=== PATIENT | female | born 1960 | race Caucasian/White ===

== ENCOUNTER 2017-01-22 09:19 | Observation (INO) ==
[2017-01-22] MEDS ORDERED: Nitroglycerin 0.4 MG TAB.SUBL SL PRN (10:53)
--- NOTE | 2017-01-22 11:21 | Internal Med History&Physical ---
Date of Encounter: 01/22/17 Time of Encounter: 10:45 Assessment and Plan (1) Left bundle branch block (LBBB) Current visit: Yes Status: Acute (2) HTN (hypertension), benign Current visit: Yes Status: Acute Add 1 dose of Lopressor IV and then add Lopressor twice a day oral (3) Dyslipidemia Current visit: Yes Status: Acute Check fasting lipid profile (4) New-onset angina Current visit: No Status: Acute Patient had clinical chest pain. With her the progressive dyspnea on exertion lately relieved with rest was a new finding of left bundle branch block. May consider invasive workup included cardiac gas is Elda with her significant family history of premature coronary artery disease, check fasting lipid profile add Nitropaste, close monitoring may consider nitro drip. Aspirin once daily, discussed with cardiology team was going to come and evaluate the patient for now keep patient nothing by mouth for possible cardiac catheter until evaluation by cardiology (5) Calf tenderness Current visit: Yes Status: Acute With her chronic bilateral Pain we will check d-dimer. If it is elevated we will proceed with venous Doppler lower extremities as well as CTA chest if negative low-risk Internal Medicine - H&P: HPI Chief complaint: Left side chest pain Admitted From: Hospital to Hospital Transfer Plans for Post Hospital Care: Home History of present illness: Ms. Villa is a 56 year old female with significant family history of coronary artery disease, patient went to [place] emergency room today with complain of recurrent episodes of chest pain. Patient stated over the last 1-1/2 months she has progressive dyspnea on exertion relieved with rest. Last night patient had episode of left sided chest pain burning like sensation 7 out of 10 in severity radiating to her left side of neck and left upper extremity with tingling numbness sensation of in her left sided neck and left upper extremities , Her pain started around 8:30 last night, patient stated that she Took aspirin which helped to improve her pain. Patient was able to sleep, patient wake up this morning around 5:30 AM with severe left-sided chest pain radiating again to her left sided neck and left upper extremities. Family check blood pressure was elevated systolic blood pressure was 150. Patient brought to the emergency room patient was given multiple doses of nitroglycerin total 3 doses. Patient stated she had some slight relief with nitroglycerin temporary. Patient had nitro paste placed. Patient stated she continued to have burning-like sensation but is much better compared to before. Patient denies any syncope or presyncope Past Med Surg Social Fam HX - Past Medical History Medical history: hyperlipidemia Psychiatric history: no psych history - Past Surgical History Surgical History: other (Appellation of her uterus, colonoscopy) - Social History Smoking Status: Never smoker Smokeless Tobacco Status: No Alcohol use: none Drug use: none - Family History Father Name: CAD S/P [place]ag @ 50YO Mother Hx Family Cardiac Disorders: Yes (CAD ) Internal Medicine - H&P: Meds Amitriptyline [Elavil] 25 mg PO HS 01/22/17 [History] Ergocalciferol (VITAMIN D2) [Vitamin D2] 50,000 unit PO QWEEK 01/22/17 [History] Sertraline [Zoloft] 100 mg PO DAILY 01/22/17 [History] 3 Allergy/AdvReac Type Severity Reaction Status Date / Time No Known Allergies Allergy Verified 01/22/17 07:06 All Systems PM: A 10-system review of systems was performed and is negative for pertinent findings except as documented above in the HPI. - Constitutional General appearance: Present: A&O X 3 - Head Head exam: Present: atraumatic, normocephalic - Neck Neck exam general surgery: Present: supple, trachea midline. Absent: lymphadenopathy - Respiratory Respiratory exam: Present: CTAB. Absent: accessory muscle use, rales, rhonchi, wheezes - Cardiovascular Cardiovascular exam: Present: RRR, +S1, +S2. Absent: diastolic murmur, gallop, rubs, systolic murmur - GI/Abdominal GI/Abdominal exam: Present: normal bowel sounds, soft, no peritoneal signs. Absent: distended, tenderness - Extremities Exam Extremities exam: Present: warm, radial pulses palpable and symmetrical. Absent : cyanotic, pedal edema Internal Med - H&P Results - Impressions Electrolytes within normal limit, H&H stable, PT/INR normal, EKG consistent with left bundle branch block
[2017-01-22] MEDS ORDERED: *HR* Metoprolol 5 MG/5 ML VIAL IVP ONE (11:44)
--- NOTE | 2017-01-22 13:02 | Cardiology Consult Note ---
Date of Encounter: 01/22/17 Time of Encounter: 12:51 Assessment and Plan (1) Chest pain Current Visit: Yes Status: Acute Atypical chest pain. Pain is reproducibe. Troponin negative x2. EKG shows LBBB and accelerated junctional rhythm. No previous EKG to compare. Cardiac risk factors include family history (father underwent CABG at age 51). Appears to have hypertension also. Continue to trend troponin. Check TTE. Plan for stress test vs [facility] tomorrow pending TTE. Qualifiers: Chest pain type: unspecified Qualified Code(s): R07.9 - Chest pain, unspecified (2) Left bundle branch block (LBBB) Current Visit: Yes Status: Acute EKG with LBBB. No previous EKG to compare. See plan above. Check TTE. (3) HTN (hypertension), benign Current Visit: Yes Status: Acute Add lisinopril. Discussion w patient/family: The assessment and plan as outlined above was discussed with the patient and/or family members who expressed understanding and agreement. All questions were answered. Thank you for involving us in the care of your patient. Please call with any questions. History of Present Illness Consult date: 01/22/17 Requesting physician: Rabia Byers Consult reason: Abnormal EKG, chest pain Chief complaint: Chest pain History of present illness: Ms. Villa is a 56 year old female with a history of anxiety who presents with chest pain starting last night while laying in bed. Her pain is described as a left sided chest burning associated with tingling in her left neck and arm. She took two 81 mg aspirin and went to sleep. When she woke up she continued to experience chest pain. She took two more aspirin and went to the ED in [place] and was given three more aspirin tablets and NTG paste. She reports minimal improvement in her pain. Her troponin was negative. EKG showed new LBBB. She was transferred to [facility]. Cardiology consulted for abnormal EKG. On my exam she continues to have left sided chest discomfort described as a burning and is reproducible. She denies SOB, palpitations, or dizziness. Denies nausea, vomiting, or diaphoresis. Past Med Surg Social Fam HX - Past Medical History Psychiatric history: no psych history, anxiety - Past Surgical History Surgical History: other (Appellation of her uterus, colonoscopy) - Social History Smoking Status: Never smoker Smokeless Tobacco Status: No Alcohol use: none Drug use: none - Family History Mother Hx Family Cardiac Disorders: Yes (heart surgery) Father Living Status: Hx Family Cardiac Disorders: Yes (triple bypass surgery PE) Medications and Allergies Amitriptyline [Elavil] 25 mg PO HS 01/22/17 [History] Ergocalciferol (VITAMIN D2) [Vitamin D2] 50,000 unit PO QWEEK 01/22/17 [History] Sertraline [Zoloft] 100 mg PO DAILY 01/22/17 [History] 3 Allergy/AdvReac Type Severity Reaction Status Date / Time No Known Allergies Allergy Verified 01/22/17 07:06 All Systems Review: A 10-system review of systems was performed and is negative for pertinent findings except as documented above in the HPI. Physical Examination Vital Signs, Last 4 Hours Temp Pulse Resp BP Pulse Ox 01/22/17 11:33 97.7 F 73 17 170/88 99 01/22/17 11:28 97.7 F 73 16 170/88 99 General: Conversant, No Apparent Distress HEENT: Atraumatic, Normocephaly, Mucus Membranes Moist Neck: No JVD, Normal carotid pulses Cardiac: Reg Rate and Rhythm, Normal S1 and S2, No Murmur Lungs: Normal Breath Sounds, No Wheeze, Rales, Rhonchi Neuro: Alert and responsive, No focal deficits noted Abdomen: Soft, Non-Tender Skin: No rashes noted on visualized skin Musculoskeletal: Other (reproducible chest wall pain. ) Extremities: No Clubbing, No Cyanosis, No Edema, Normal Pulses Results Lab Results 01/22/17 11:23 Troponin I 0.00 - Imaging and Cardiology Chest Xray: report reviewed (Negative for acute process.) - EKG Interpretation EKG results cardiology: personally reviewed (Accelerated junctional rhythm.) Consult Discharge Plan - Plan Referrals: Rosangela Nur MD [Primary Care Provider] -
[2017-01-22] MEDS: Aspirin 81 MG TAB.CHEW PO SCH (13:34)
[2017-01-22] MEDS: Nitroglycerin 1 INCH/GM PACKET TP SCH (13:34)
[2017-01-22] MEDS ORDERED: Ibuprofen 400 MG TABLET PO ONE (16:26)
[2017-01-22] MEDS ORDERED: Acetaminophen 325 MG TABLET PO PRN (16:26)
[2017-01-23 04:34] LABS: Basophils % 0.4 %; Eosinophils # 0.3 K/mcL (0.0-0.6); Eosinophils % 2.5 %; Hematocrit 41.1 % (35.3-44.9); Hemoglobin 13.5 g/dL (11.5-15.4); Immature Granulocytes % 0.4 % (0-4); Lymphocytes % 27.5 %; Mean Corpuscular HGB Conc 32.8 g/dL (31.6-35.5); Mean Corpuscular Hemoglobin 30.1 pg (28.0-33.3); Mean Corpuscular Volume 91.5 fL (83.0-100.0); Mean Platelet Volume 11.5 fL (9.4-12.4); Monocytes % 8.9 %; Neutrophils # 6.6 K/mcL (1.6-8.9); Platelet Count 336 K/mcL (140-400); Red Blood Count 4.49 M/mcL (3.82-4.97); Segmented Neutrophils % 60.3 %
[2017-01-23] MEDS: Nitroglycerin 1 INCH/GM PACKET TP SCH ×2 (05:58→13:09)
[2017-01-23] MEDS: Aspirin 81 MG TAB.CHEW PO SCH (09:05)
--- NOTE | 2017-01-23 10:10 | Cardiology Progress Note ---
Date of Encounter: 01/23/17 Time of Encounter: 08:00 Assessment and Plan (1) Chest pain Current Visit: Yes Status: Acute Atypical and typical chest pain symptoms on admission. Pain is reproducibe in left chest wall. Chest pain improved. Troponin negative x3. EKG shows LBBB and accelerated junctional rhythm. No previous EKG to compare. Cardiac risk factors include family history (father underwent CABG at age 51). Appears to have hypertension also. TTE-LVEF 60%. Mild left ventricular diastolic dysfunction. Normal right ventricular structure and function. No significant valvular dysfunction. No pulmonary hypertension. D-dimer is elevated. Recommend CTA of the chest. If negative recommend C for further evaluation of chest pain and new LBBB. R/B/A of LHC discussed and she agrees to proceed. Due to IV dye load will need to wait 24-48 hours. Monitor BMP. Qualifiers: Chest pain type: unspecified Qualified Code(s): R07.9 - Chest pain, unspecified (2) Left bundle branch block (LBBB) Current Visit: Yes Status: Acute EKG with LBBB. No previous EKG to compare. See plan above. (3) HTN (hypertension), benign Current Visit: Yes Status: Acute Newly diagnosed HTN. lisinopril added. B/p improved. Discussion w patient/family: The assessment and plan as outlined above was discussed with the patient and/or family members who expressed understanding and agreement. All questions were answered. Thank you for involving us in the care of your patient. Please call with any questions. Subjective Principal diagnosis: Chest pain, new LBBB Interval history: Reports pain is minimal this morning. Continues to have mild reproducible chest wall pain. Objective Vital Signs, Last 4 Hours Temp Pulse Resp BP Pulse Ox 01/23/17 07:05 98.0 F 95 16 116/78 96 General: Conversant, No Apparent Distress HEENT: Atraumatic, Normocephaly, Mucus Membranes Moist Neck: No JVD, Normal carotid pulses Cardiac: Reg Rate and Rhythm, Normal S1 and S2, No Murmur Lungs: Normal Breath Sounds, No Wheeze, Rales, Rhonchi Neuro: Alert and responsive, No focal deficits noted Abdomen: Soft, Non-Tender Skin: No rashes noted on visualized skin Musculoskeletal: Other (left chest wall mildly tender to palpation) Extremities: No Clubbing, No Cyanosis, No Edema, Normal Pulses Results 10/31/17 03:30 Lab Results 01/22/17 01/22/17 01/22/17 11:23 11:23 17:08 WBC Hgb Hct Plt Count D-Dimer 709 H Troponin I 0.00 0.00 01/22/17 01/23/17 23:11 03:30 WBC 11.0 Hgb 13.5 Hct 41.1 Plt Count 336 D-Dimer Troponin I 0.00 - Imaging and Cardiology Echo: report reviewed (LVEF 60%. Mild left ventricular diastolic dysfunction. Normal right ventricular structure and function. No significant valvular dysfunction. No pulmonary hypertension.) - EKG Interpretation EKG results cardiology: personally reviewed Consult Discharge Plan - Plan Referrals: Rosangela Nur MD [Primary Care Provider] - 01/29/17 4:15 pm
[2017-01-23] MEDS ORDERED: 0.9 % Sodium Chloride 1,000 ML IVC SCH ×2 (13:30→14:45)
--- NOTE | 2017-01-23 13:32 | Event Note ---
Date of Encounter: 01/23/17 Time of Encounter: 13:30 - Cardiology Event Note CTA of the chest was negative. Discussed with Dr. Villa. Dye load can be minimized with LHC. Kidney function is normal. Will start IV hydration and proceed with LHC today to further evaluate chest pain and new LBBB. R/B/A reviewed with patient. She agrees to proceed. denies chest pain currently.
[2017-01-23] MEDS ORDERED: *HR* Heparin 10,000 UNIT/10 ML VIAL ONE (13:35)
[2017-01-23] MEDS ORDERED: 0.9 % Sodium Chloride 1,000 ML ONE ×2 (13:35→13:56)
[2017-01-23] MEDS ORDERED: Nitroglycerin 1,000 MCG/10 ML VIAL IV ONE (13:35)
[2017-01-23] MEDS ORDERED: Heparin 1,000 UNITS/500 mL NS 500 ML ONE (13:35)
--- NOTE | 2017-01-23 13:48 | Pre-Sedation Evaluation ---
Pre-sedation evaluation - Pre-sedation checklist Date of procedure: 01/23/17 Procedure: [facility] Recent Vitals: Last Vital Signs Temp 97.7 F 01/23/17 11:37 Pulse 84 01/23/17 11:37 Resp 17 01/23/17 11:37 BP 121/76 01/23/17 11:37 Pulse Ox 97 01/23/17 11:37 H&P (including ROS) documented in medical record: Yes Previous reaction to sedatives/anesthetics: No Dietary Status: NPO after Midnight Airway Assessment: Patient can open mouth completely, TMJ function normal, Micrognathia (under-bite, receding chin) absent, Neck with adequate range of motion Dentition: No loose teeth or bridges Possible difficult airway: No ASA Classification *see protocol: CLASS II-Mild systemic disease Plan of Care: Pt appropriate candidate for procedure/moderate/conscious sedation , Risks/benefits of procedure/sedation discussed w/ patient/family
[2017-01-23] MEDS ORDERED: *HR* FentaNYL (PF) 100 MCG/2 ML VIAL ONE (13:59)
[2017-01-23] MEDS ORDERED: *HR* Midazolam HCl 2 MG/2 ML VIAL ONE (13:59)
--- NOTE | 2017-01-23 14:48 | Invasive Diagnostic Lab Proc ---
Name: Indigo Villa Date of Study: 01/23/2017 Date: 1960 Ht: 64.2in Medical Record#: [id number] Age: 56 Wt: 149.91lb Gender: Female BSA: 1.73 Order #: [id number] BMI: 25.59 Physicians Procedure Physician: Jovana Martel MD, [facility] Referring MD: Referring MD: Staff Name Position Time In Jose Allen RN Monitor 01:50 PM Catherine Gimenez RN Personal Lines Underwriter 01:50 PM Kenya Vega RN Monitor 01:50 PM Nicole Rodriguez RN Personal Lines Underwriter 01:54 PM Indications Indication Unstable Angina Procedures Performed Procedure L HRT ARTERY/VENTRICLE ANGIO Pre-Procedure Checklist Informed consent is complete signed and on chart. H&P is on chart. ID band is on and ID verified with patient. Patient NPO for procedure The procedure was described for the patient and questions were answered. Blood Pressure: 116/78 ECG is on chart. Rhythm: NSR Plan of Care Patient will tolerate the procedure without complications. Adequate level of comfort will be maintained. Hemodynamics will remain stable Patient will recover from procedure without complications. Respiratory function will be maintained. Cardiac rhythm will remain stable. Patient temperature will be maintained. Patient and/or family have verbalized understanding of the procedure. Patient Education Intravenous Access Time IV Size Location DC'd Fluid/Drip Rate Units RN 02:08 PM 18g 1 /" Patent On Arrival Lt Antecubital Jose Allen RN Allergies No Known Allergies Vital Signs Time BP (mmHg) HR (bpm) O2 Sat. RR (bpm) LOC 01:59 PM / % 5 = Fully awake and oriented or at pre-proc level 01:59 PM / % 4 = Oriented but drowsy 02:15 PM / % 4 = Oriented but drowsy 02:03 PM 140 / 90 75 % 17 02:08 PM 121 / 79 80 94 % 21 02:13 PM 113 / 78 88 95 % 13 02:18 PM 121 / 81 84 99 % 19 02:23 PM 127 / 81 81 95 % 21 02:28 PM 126 / 69 80 96 % 21 02:33 PM 128 / 85 % Procedural Medications Time Medication Dose Units Method Given By 01:59 PM Oxygen 2 L/min nasal cannula Catherine Gimenez RN 02:03 PM Versed 2 mg Intravenous Catherine Gimenez RN 02:03 PM Fentanyl 50 mcg Intravenous Catherine Gimenez RN 02:16 PM Benadryl 25 mg Intravenous Catherine Gimenez RN 02:18 PM Lidocaine 2% 20 ml Subcutaneous Jovana Martel MD, [facility] ASA Classification: CLASS II- Mild systemic disease (i.e. well-controlled diabetes, hypertension, asthma, cigarette smoking) Tripp Score Preprocedure Postprocedure Activity 2- Moves 4 extremities sustained head lift Activity 2- Moves 4 extremities sustained head lift Circulation 2- SBP +/= 20 points of pre-anesthetic level Circulation 2- SBP +/= 20 points of pre-anesthetic level Consciousness 2- Awake and alert oriented x 3 Consciousness 2- Awake and alert oriented x 3 O2 Saturation 2- Able to maintain O2 satruation of 92% on room air O2 Saturation 2- Able to maintain O2 satruation of 92% on room air Respiratory 2- Able to deep breathe and cough well Respiratory 2- Able to deep breathe and cough well Total Score 10 Total Score 10 Contrast Agent: Isovue Diagnostic Contrast: 35 ml Total Contrast: 35 ml Fluoro Dose: 112 mGy Procedure Log Time Note Enter By 01:50 PM Pt arrived to clinical laboratory manager 1 [facility] PM Jose Allen RN Position: Monitor Time in: 13:50 [facility] 01:50 PM Catherine Gimenez RN Position: Personal Lines Underwriter Time in: 13:50 [facility] 01:[facility] PM Kenya Vega RN Position: Monitor Time in: 13:50 [facility] 01:51 PM Patient charges- Angio tray pack, Navilyst 3mm J, Pulse Oximetry and ACIST tubing and transducer [facility] 01:51 PM Case Delayed no, [facility] 01:54 PM Nicole Rodriguez RN Position: Personal Lines Underwriter Time in: 13:54 [facility] 01:59 PM Hair removed from procedure site in procedure lab using clippers. Bilateral groin prepped with Chloraprep by Nicole Rodriguez RN, then patient was draped. Skin intact. [facility] 01:59 PM Gisell paged/called 13:[facility]. [facility] PM Gisell responded and notified patient is ready 13:[facility] 01:[facility] PM [facility] PM Meet and greet completed [email or web address] 01:59 PM Sign in performed according to hospital policy. jcallan :59 PM Procedure start 13:59 jcallihan :59 PM CathStat 01:59 PM Time: 13:59 Patient comfortable and pain free: Yes allan :59 PM Time: 13:59LOC: 5 = Fully awake and oriented or at pre-proc level jcallihan :59 PM Time: 13:59 Oxygen on at 2 L/min per nasal cannula by Catherine Gimenez RN 02:00 PM Clinical Presentation: Unstable angina jcallan 02:00 PM ASA Class CLASS II- Mild systemic disease (i.e. well-controlled diabetes, hypertension, asthma, cigarette smoking) [facility] 02:02 PM Vitals capture started with the following parameters, Patient=Adult, Interval=5 min, Initial Cdqvvewg=902 mmHg, Deflation Rate=5 mmHg, Cuff placed on Right Arm 02:03 PM HR=75 bpm, DKCH=841/90 mmhg, Resp=17 B/min, Comment=nsr 02:03 PM Time: 14:03 Versed 2 mg Intravenous Given by Catherine Gimenez RN 02:03 PM Time: 14:03 Fentanyl 50 mcg Intravenous Given by Catherine Gimenez RN 02:04 PM Recorded ECG: HR=81 Condition=Condition 1 02:08 PM HR=80 bpm, MIHL=833/79 mmhg, SpO2=94.0 %, Resp=21 B/min, Comment=nsr 02:13 PM HR=88 bpm, ZCWU=702/78 mmhg, SpO2=95.0 %, Resp=13 B/min, Comment=nsr 02:15 PM Time: 13:59LOC: 4 = Oriented but drowsy jcallihsylvester 02:15 PM Time: 13:59 Patient comfortable and pain free: Yes jcallihan 02:16 PM Time out performed according to hospital policy [facility] 02:16 PM Time: 14:16 Benadryl 25 mg Intravenous Given by Catherine Gimenez RN 02:16 PM Pressure channel 1 zeroed. 02:18 PM HR=84 bpm, YSFU=115/81 mmhg, SpO2=99.0 %, Resp=19 B/min, Comment=nsr 02:18 PM Pressure channel 1 zeroed. 02:18 PM Time: 14:18 20 ml Lidocaine 2% to right groin Subcutaneous Given by Jovana Martel MD, [facility] jcallihan 02:19 PM Access obtained by percutaneous puncture. 5Fr 10cm Terumo [place] sheath placed in right Femoral artery. [id number] jcallihan 02:19 PM 5Fr FL 4 catheter inserted over the wire DN jcallihan 02:20 PM LCA angiography performed in multiple views. [email or web address] 02:20 PM Recorded Pressure: Ao, HR=78, Condition=Condition 1 (Aorta) Ao 122/88/104 02:22 PM Catheter removed jcallihan 02:22 PM 5Fr FR 4 catheter inserted over the wire DN jcallihan 02:23 PM HR=81 bpm, YFVS=421/81 mmhg, SpO2=95.0 %, Resp=21 B/min, Comment=nsr 02:23 PM RCA angiography performed in multiple views. jcallihan 02:24 PM Coronary Dominance: right jcallihan 02:24 PM Catheter removed jcallihan 02:24 PM 5Fr Pigtail catheter inserted over the wire DN jcallihan 02:25 PM Pressure channel 1 zeroed. 02:25 PM Recorded Pressure: LV, HR=84, Condition=Condition 1 (Left Ventricle) LV 102/16/18 02:25 PM Recorded Pressure: LV, Ao, HR=83, Condition=Condition 1 (Left Ventricle) LV 104/16/20, (Aorta) Ao 110/75/93 02:25 PM Catheter selectively placed in left ventricle jcallihan 02:26 PM Catheter removed jcallihan 02:26 PM Bolus angiogram of right Femoral complete: 4 ml/sec for a total of 7 mls jcallihan 02:27 PM Procedure completed at 14:27 jcallihan 02:27 PM Sign out completed: Radiation Dose 112 mGy Fluoro Time: 1.5 Isovue 370 - 200ml contrast 35 ml given by Jovana Martel MD, [facility]. Complications: NoneCardiac Rehab Consult needed: NoConfirmed administered medications: Yes [email or web address] 02:27 PM Isovue 370 - 200ml,1 Bottle(s) used. jcallihan 02:27 PM Post ECG NSR jcallihan 02:27 PM Post Blood Pressure 127/81 jcallihan 02:28 PM Information taught Cardiac Cath and Mynx jcallihan 02:28 PM Education needs Procedure, Plan of Care, and Responsibilities of Patient in Care jcallihan 02:28 PM Learning barriers :None jcallihan 02:28 PM Education Methods Verbal jcallihan :28 PM Education evaluation Able to repeat information jcallihan : PM HR=80 bpm, VDIW=670/69 mmhg, SpO2=96.0 %, Resp=21 B/min, Comment=nsr 02:28 PM Plavix, Effient or Brilinta given No jcallihan :28 PM Delay to floor No jcallihan :28 PM Complications: None jcallihan :28 PM Fluoro Time: 1.5 jcallihan :28 PM Isovue 370 - 200ml contrast 35 ml given by Jovana Martel MD, [facility]. jcallihan :29 PM Radiation Dose 112 mGy jcallihan 02:29 PM Arterial sheath pulled, Mynx closure device used and was Successful [id number] S/N. jcallihan 02:29 PM 14:29 Post Pulses Bilateral DP & PT 2+ jcallihan 02:29 PM Opsite applied jcallihan 02:30 PM Site status No bleeding/hematoma - Rt Groin as reported by Nato Dawkins RN at 14:29 jcallihan 02:30 PM Time: 14:15 Patient comfortable and pain free: Yes [email or web address] 02:30 PM Time: 14:15LOC: 4 = Oriented but drowsy jcallihan 02:33 PM MHHX=680/85 mmhg, Comment=nsr 02:36 PM Lesion found in Mid RCA. Pre Stenosis: 20 Pre YENIFER Flow: [email or web address] 02:36 PM Lesion found in Mid LAD. Pre Stenosis: 30 Pre YENIFER Flow: [email or web address] 02:36 PM Lesion found in Proximal Circumflex. Pre Stenosis: 20 Pre YENIFER Flow: [email or web address] 02:36 PM Mid/Distal Left Anterior Descending Coronary Artery and diagonal branches with 30% stenosis. If graft is supplying this area, 0 % stenosis jcallihan 02:37 PM Circumflex, Obtuse Marginal, Left Posterior Descending, and Left Posterolateral Coronary Arteries with 20 % stenosis. If graft is supplying this area, 0 % stenosis jcallihan 02:37 PM Right Coronary, Right Posterior Descending Arteries with Right Posterolateral and Acute Marginal branches with 20 % stenosis. If graft is supplying this area, 0 % stenosis jcallihsylvester 02:38 PM Report given to 3B RN Pt taken to 3B Room #35. 14:38 [email or web address] 02:38 PM Patient out of room: 14:38 [email or web address] Complications Complication None None Hemodynamics Pressures Site Systolic/A Wave Diastolic/V Wave Mean AO 122 88 104 LV 102 16 18 LV 104 16 20 AO 110 75 93 Post Procedure Information Blood Pressure: 127/81 mmHg Rhythm: NSR Post procedural instructions were given Closure Device Time Device Success/Fail 01/23/2017 2:33:00 PM MynxGrip Successful Site Checks Time Location Status Staff Sheath In? Note 02:29 PM Rt Groin No bleeding/hematoma Nato Dawkins RN Pulses Time Site Pre-Procedure Post-Procedure Note 01/23/2017 2:10:00 PM Bilateral DP & PT 2+ 01/23/2017 2:10:00 PM Bilateral radial 2+ 2:29:00 PM Bilateral DP & PT 2+ Updated by Jose Allen RN on 01/23/2017 2:40:05 PM electronically signed on 01/23/2017 2:41:10 PM with status of Final
--- NOTE | 2017-01-23 14:49 | Internal Med Progress Note ---
Date of Encounter: 01/23/17 Time of Encounter: 10:00 - Assessment and plan (1) Chest pain Current Visit: Yes Status: Acute Assessment and plan: Indigo Villa is a 56 y/o female with PMH HTN and anxiety who presented to outside hospital on 01/22/2017 with complaints of chest pain. She was found to have a new left bundle-branch block was transferred to [facility] for further workup and treatment 1. Chest pain: on day of presentation. Received ASA prior to arrival. EKG with new left bundle branch block and accelerated junctional rhythm. D-dimer elevated; chest CTA for pulmonary embolism. [facility] planned for 01/23. Cardiology following. Hgb A1c, lipid panel pending. 2. HTN: per hx. BP controlled. Cont home BP medications. Monitor BP and titrate PRN 3. Anxiety: per hx. Cont home Zoloft, Elavil 4. DVT prophylaxis: Heparin Qualifiers: Chest pain type: unspecified Qualified Code(s): R07.9 - Chest pain, unspecified (2) HTN (hypertension), benign Current Visit: Yes Status: Acute (3) Anxiety Current Visit: Yes Status: Acute - Subjective Interval history: Serum examined at bedside. Patient is new to me, information obtained from chart review and patient report. Says he feels overall better. Check she has no complaints besides being a little nervous. Denies chest pain, no shortness of breath. - Constitutional Vitals: Temp Pulse Resp BP Pulse Ox 97.7 F 84 17 121/76 97 01/23/17 11:37 01/23/17 11:37 01/23/17 11:37 01/23/17 11:37 01/23/17 11:37 General appearance: Present: A&O X 3 - Head Head exam: Present: atraumatic, normocephalic - Eye Eye exam: Present: PERRL, conjuntiva pink, sclera anicteric Pupils: Present: PERRL - Neck Neck exam general surgery: Present: supple, trachea midline. Absent: lymphadenopathy - Respiratory Respiratory exam: Present: CTAB. Absent: accessory muscle use, rales, rhonchi, wheezes - Cardiovascular Cardiovascular exam: Present: RRR, +S1, +S2. Absent: diastolic murmur, gallop, rubs, systolic murmur - GI/Abdominal GI/Abdominal exam: Present: normal bowel sounds, soft, no peritoneal signs. Absent: distended, tenderness - Extremities Exam Extremities exam: Present: warm, radial pulses palpable and symmetrical. Absent : calf tenderness, cyanotic, pedal edema - Neurological Exam Neurological exam: Present: CN II-XII intact, oriented X3, no focal deficits. Absent: pronater drift, facial droop, speech deficit - Skin Skin exam: Present: dry, intact Internal Medicine: Result - Labs CBC & Chem 7: 01/23/17 03:30 Labs: Short CBC 01/23/17 Range/Units 03:30 WBC 11.0 (4.3-11.1) K/mcL Hgb 13.5 (11.5-15.4) g/dL Hct 41.1 (35.3-44.9) % Plt Count 336 (140-400) K/mcL Neutrophils # 6.6 (1.6-8.9) K/mcL Cardiac Enzymes 01/22/17 01/22/17 Range/Units 17:08 23:11 Troponin I 0.00 0.00 (0-0.03) ng/mL - ABG Interpretation ABG results: PT/INR, D-dimer D-Dimer 709 ng/mLFEU (0-500) H 01/22/17 11:23 - Impressions Impressions Echocardiogram 01/22/17 13:26 Impressions: LVEF 60%. Mild left ventricular diastolic dysfunction. Normal right ventricular structure and function. No significant valvular dysfunction. No pulmonary hypertension. Left Ventricular Wall Motion: Rest Echo Findings All wall segments showed normal motion. Findings: Study Quality * Technically adequate exam. ECG Findings * Normal sinus rhythm. Left Ventricle * LVEF 60%. * Mild left ventricular diastolic dysfunction. * Normal LV size and systolic function. Right Ventricle * Normal right ventricular structure and function. Left Atrium * Normal left atrial size. Right Atrium * Normal right atrial size. Aortic Valve * No aortic regurgitation. * Aortic valve not well visualized. * No aortic stenosis. Mitral Valve * Normal mitral valve structure. * No mitral regurgitation. * No mitral stenosis. Tricuspid Valve * Tricuspid valve not well visualized. * No tricuspid regurgitation. Pulmonic Valve * Pulmonic valve is not well visualized. * No pulmonic stenosis. * No pulmonic regurgitation. Pulmonary Artery * Pulmonary artery not well visualized. Aorta * Normally sized aortic root. Pericardium * There is no pericardial effusion present. Interatrial Septum * No evidence of PFO by color Doppler. IVC * The IVC is not dilated. Chest CTA 01/23/17 10:00 IMPRESSION: No evidence of pulmonary embolism or acute pulmonary abnormality. D/ / Norberto Candelario MD / Norberto Candelario MD Interpreting Provider: Norberto Candelario MD Consult Discharge Plan - Plan Referrals: Rosangela Nur MD [Primary Care Provider] - 01/29/17 4:15 pm
--- NOTE | 2017-01-23 16:05 | Event Note ---
Date of Encounter: 01/23/17 Time of Encounter: 16:00 - Cardiology Event Note LHC completed and showed minimal plaque. CTA of the chest was negative. TTE shows preserved LV function. Telemetry review shows SR-ST. No concerning arrhythmias seen. R/o non-cardiac cause of pain. Pain is reproducible on exam. Reports frequent lifting of heavy boxes. Pain may be muscle skeletal. Continue asa 81 mg daily and lisinopril for blood pressure. Cardiology will sign off. Call with questions. Out patient f/u as needed.
--- NOTE | 2017-01-23 16:14 | Discharge Summary ---
Date of Encounter: 01/23/17 Time of Encounter: 16:10 - Discharge Diagnosis (1) Chest pain Priority: Primary Status: Acute Comments: Indigo Villa is a 56 y/o female with PMH HTN and anxiety who presented to outside hospital on 01/22/2017 with complaints of chest pain. She was found to have a new left bundle-branch block was transferred to [facility] for further workup and treatment. She underwent a LHC which was negative for significant disease. She was discharged home on 01/23/2017 in stable condition with outpatient follow-up. 1. Chest pain: on day of presentation. Received ASA prior to arrival. EKG with new left bundle branch block and accelerated junctional rhythm. D-dimer elevated; chest CTA negative for pulmonary embolism. LHC showed minimal plaque. TTE with preserved LV function. Telemetry review showed SR-ST; no concerning arrhythmias. Suspect atypical and/or muscular skeletal etiology as pain was reproducible on exam and patient reported frequent lifting of heavy boxes. 2. HTN: per hx. BP controlled. Cont home BP medications. 3. Anxiety: per hx. Cont home Zoloft, Elavil Qualifiers: Chest pain type: unspecified Qualified Code(s): R07.9 - Chest pain, unspecified (2) HTN (hypertension), benign Priority: Primary Status: Acute (3) Anxiety Priority: Primary Status: Acute - Discharge Medications Prescriptions: Aspirin 81 mg PO DAILY #30 tab.chew Home Medications: Amitriptyline [Elavil] 25 mg PO HS 01/22/17 [History] Ergocalciferol (VITAMIN D2) [Vitamin D2] 50,000 unit PO QWEEK 01/22/17 [History] Sertraline [Zoloft] 100 mg PO DAILY 01/22/17 [History] Aspirin 81 mg PO DAILY #30 tab.chew 01/23/17 [Rx] Allergies/Adverse Reactions: 3 Allergy/AdvReac Type Severity Reaction Status Date / Time No Known Allergies Allergy Verified 01/22/17 07:06 Procedures/tests Complete & Pending: Procedures Performed prior 72 hours Category Date Time Status CTA chest [CT angio chest] [CT] Routine Cat Scan 01/23/17 10:00 Completed CL Cardiac Catheterization [CL] Routine [employer]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 01/23/17 13:23 Completed EV echocardiogram Routine Y 01/22/17 13:26 Completed Date of admission: 01/22/17 10:44 Primary care physician: Rosangela Nur, Consults: 01/22/17 11:43 Consult to Cardiology [CONS] Routine Comment: Consulting Provider: Cardiology Elizabeth Reason for Consult: CHEST PAIN , lbbb Call Completed: Yes Discharging clinician: Vesna Edwards Anticipated date of discharge: 01/23/17 - Patient Status Disposition: Home, Self-Care Condition: Good Functional capacity at discharge: independent ambulation Overall status at discharge: patient is back to baseline - Discharge Instructions Instructions: Noncardiac Chest Pain (DC), Chronic Hypertension (DC) Follow Up With: Rosangela Nur MD [Primary Care Provider] - 01/29/17 4:15 pm - Diet and Activity Activity: increase activity as tolerated Diet: advance to your usual diet, low fat, low cholesterol Interval History: See 01/23/2017 progress note Hospital course: Ms. Villa is a 56 year old female - Time Spent with Patient Total time spent providing and/or coordinating discharge services: - Constitutional Vitals: Temp Pulse Resp BP Pulse Ox 97.7 F 84 17 121/76 97 01/23/17 11:37 01/23/17 11:37 01/23/17 11:37 01/23/17 11:37 01/23/17 11:37 General appearance: Present: A&O X 3 - Head Head exam: Present: atraumatic, normocephalic - Eye Eye exam: Present: PERRL, conjuntiva pink, sclera anicteric Pupils: Present: PERRL - Neck Neck exam general surgery: Present: supple, trachea midline. Absent: lymphadenopathy - Respiratory Respiratory exam: Present: CTAB. Absent: accessory muscle use, rales, rhonchi, wheezes - Cardiovascular Cardiovascular exam: Present: RRR, +S1, +S2. Absent: diastolic murmur, gallop, rubs, systolic murmur - GI/Abdominal GI/Abdominal exam: Present: normal bowel sounds, soft, no peritoneal signs. Absent: distended, tenderness - Extremities Exam Extremities exam: Present: warm, radial pulses palpable and symmetrical. Absent : calf tenderness, cyanotic, pedal edema - Neurological Exam Neurological exam: Present: CN II-XII intact, oriented X3, no focal deficits. Absent: pronater drift, facial droop, speech deficit - Skin Skin exam: Present: dry, intact
[2017-01-23 19:59] VITALS: BP 106/68
[2017-01-23] MEDS ORDERED: *HR* Heparin 5,000 UNIT/ML VIAL SQ SCH (22:00)
== END 2017-01-23 19:00 | disposition home or self-care (01) ==
LOC: 3BNU
PROVIDERS: ADMIT Family Medicine; ATTEND Family Medicine